=== PATIENT | male | born 1990 | race Two or more races ===

== ENCOUNTER 2020-06-09 10:27 | Emergency (ER) | payer SELFPAY ==
[~2020-06-09] VITALS: Ht 165.1 cm; Wt 63.6 kg
[2020-06-09 10:39] VITALS: BP 126/83; Ht 165.1 cm; Wt 63.6 kg
[2020-06-09] MEDS ORDERED: IBUPROFEN800 MG PO (11:43)
[2020-06-09] MEDS ORDERED: BACLOFEN20 M1 PO (11:43)
== END 2020-06-09 12:09 | disposition home or self-care (01) ==
LOC: D.ER 10:27
DX: M54.5 Low back pain (principal); M62.838 Other muscle spasm